=== PATIENT | female | born 1965 | race African-American/Black ===

== ENCOUNTER 2017-03-10 23:35 | Emergency (ER) | payer MEDICAID ==
[~2017-03-10] VITALS: Ht 154.9 cm; Wt 77.0 kg
[2017-03-11] MEDS ORDERED: ACETAMINOPHEN 160MG/5ML UD CUP PO ONE (01:45)
[2017-03-11 05:05] VITALS: BP 151/65
== END 2017-03-11 05:44 | disposition home or self-care (01) ==
LOC: ER 23:35
DX: S39.012A Strain of muscle, fascia and tendon of lower back, initial encounter (principal); S29.012A Strain of muscle and tendon of back wall of thorax, initial encounter; S16.1XXA Strain of muscle, fascia and tendon at neck level, initial encounter; M79.601 Pain in right arm; M25.511 Pain in right shoulder; V89.2XXA Person injured in unspecified motor-vehicle accident, traffic, initial encounter; Y93.89 Activity, other specified; Y92.89 Other specified places as the place of occurrence of the external cause; Y99.8 Other external cause status
CPT/HCPCS: 70450; 71010; 72070; 72100; 72125; 99284; Z7610